=== PATIENT | male | born 1995 | race Caucasian/White ===

== ENCOUNTER 2019-02-07 18:45 | Emergency (ER) | payer OTHER ==
[~2019-02-07] VITALS: Ht 180.3 cm; Wt 90.9 kg
[2019-02-07 18:46] VITALS: BP 135/71
[2019-02-07] MEDS ORDERED: NAPR-885 PO (19:23)
[2019-02-07] MEDS ORDERED: CETI10TA PO (19:23)
== END 2019-02-07 19:30 | disposition home or self-care (01) ==
LOC: M ED 18:45
DX: L98.8 Other specified disorders of the skin and subcutaneous tissue (principal); T50.A95A Adverse effect of other bacterial vaccines, initial encounter